=== PATIENT | female | born 1965 | race Caucasian/White ===

== ENCOUNTER 2018-03-17 18:49 | Emergency (ER) | payer SELFPAY ==
[~2018-03-17] VITALS: Ht 175.3 cm; Wt 97.7 kg
[2018-03-17 18:57] VITALS: TEMP 36.7; Ht 175.3 cm; Wt 97.7 kg
[2018-03-17 19:08] VITALS: O2SAT 94
[2018-03-17] MEDS ORDERED: METHYLPREDNISOLONE 125 MG VIAL IV STA (19:14)
[2018-03-17] MEDS ORDERED: SODIUM CHLORIDE 0.9% 500ML 500 ML IV STA (19:14)
[2018-03-17] MEDS ORDERED: ALBUT/IPRATROP 3MG/0.5MG NEB 3 ML VIAL INH ONE (19:15)
[2018-03-17 19:40] LABS: BASO % 0.5 %; BASO ABS # 0.05 K/uL (0-0.2); EOS % 14.4 %; HEMOGLOBIN 12.5 g/dL (12.0-16.0); IG# 0.04 K/uL (0.00-0.02); LYMPH % 26.8 %; LYMPH ABS # 2.79 K/uL (1.2-3.4); MEAN CELL VOLUME 91.1 fL (80-100); MEAN CORPUSCULAR HEMOGLOBIN 30.8 pg (25-34); MEAN CORPUSCULAR HGB CONC 33.8 g/dl (32-36); MEAN PLATELET VOLUME 10.1 fL (7.4-10.4); MONO % 6.2 %; MONO ABS # 0.65 K/uL (0.11-0.59); NEUT % 51.7 %; NEUT ABS # 5.38 K/uL (1.4-6.5); PLATELET COUNT 279 K/uL (130-400); RED CELL DISTRIBUTION WIDTH CV 13.5 % (11.5-14.5); RED CELL DISTRIBUTION WIDTH SD 44.7 fL (36.4-46.3); WHITE BLOOD COUNT 10.41 K/uL (4.8-10.8)
[2018-03-17] MEDS ORDERED: OMEG-21 (19:44)
[2018-03-17] MEDS ORDERED: QUET1TAB32 PO (19:44)
[2018-03-17] MEDS ORDERED: NAPR1TAB9 PO (19:44)
[2018-03-17] MEDS ORDERED: MULT-506 PO (19:44)
[2018-03-17] MEDS ORDERED: SERT100T PO (19:44)
[2018-03-17 19:56] VITALS: PULSE 84; O2SAT 94
[2018-03-17 19:56] LABS: CREATININE 0.8 mg/dl (0.60-1.20); POTASSIUM 3.5 mmol/L (3.5-5.1)
[2018-03-17 20:18] LABS: INFLUENZA B ANTIGEN Neg for Influ B (NEG)
[2018-03-17] MEDS ORDERED: LEVOFLOXACIN 250 MG TAB PO ONE (22:00)
[2018-03-17] MEDS ORDERED: ALBUTEROL HFA 8 GM INHALER INH ONE (22:00)
[2018-03-17 22:20] VITALS: BP 139/91; PULSE 90
--- NOTE | 2018-03-17 22:21 | DIAGNOSTIC IMAGING REPORT ---
CHEST 2 VIEWS ROUTINE CLINICAL HISTORY: Shortness of breath, productive cough and fever. COMPARISON STUDY: Chest radiograph November 15, 2013. FINDINGS: There is no pneumothorax. Linear bibasilar opacities favor atelectasis. There is slight interstitial thickening. There are possible trace bilateral pleural effusions. Cardiac size is normal. Mediastinal contours are normal. IMPRESSION: 1. Slight interstitial thickening which may reflect an infectious process. Mild pulmonary edema could appear similar although is considered less likely. Radiographic follow up is recommended. 2. Suspected trace bilateral pleural effusions. Electronically signed by: Chun Plata M.D. 03/17/2018 10:19 PM Dictated Date/Time: 03/17/2018 10:17 PM
[2018-03-17] MEDS ORDERED: PRED50TA PO (22:22)
[2018-03-17] MEDS ORDERED: LEVO-366 PO (22:22)
[2018-03-17 22:25] VITALS: O2SAT 93
--- NOTE | 2018-03-17 22:26 | EMERGENCY ROOM VISIT NOTE ---
History First contact with patient: 19:06 Chief Complaint: SHORTNESS OF BREATH Stated Complaint: SHORTNESS OF BREATH, COUGHING, WHEEZING Nursing Triage Summary: Pt states sob x 4 days, a/ox4, c/o rib pain. skin w/d/i, color pink, productive cough yellow sputum, lungs decresed with faint wheezes. History of Present Illness The patient is a 53 year old female who presents to the Emergency Room with complaints of a productive cough, fever and shortness of breath for the last 4 days. Patient denies any history of pulmonary disease. She has been trying Mucinex with minimal relief. The patient complains of bilateral chest pain when coughing. She denies any sick contacts. No nausea or vomiting. Review of Systems 10 system review performed and negative unless noted in HPI or below Past Medical/Surgical History Medical Problems: (1) DEPRESSIVE DISORDER NEC (2) DISORDER OF THYROID NOS (3) DRUG ABUSE NEC-UNSPEC (4) HEMANGIOMA INTRACRANIAL (5) MIGRAINE UNSPECIFIED W/O INTRACTABLE MIGRAINE Family History Diabetes mellitus FH: cancer FH: heart disease Hypertension Kidney disease Kidney stones Social History Smoking Status: Never Smoker Alcohol Use: none Marital Status: Housing Status: lives with family Occupation Status: unemployed Current/Historical Medications Scheduled Levofloxacin (Levaquin), 500 MG PO DAILY Multivitamin (Multivitamin), 1 TAB PO DAILY Naproxen (Aleve), 220 MG PO QAM [place]-3 Fatty Acids (Fish Oil), 1 CAP DAILY Prednisone (Prednisone), 50 MG PO DAILY Quetiapine Fumarate (Seroquel), 100 MG PO HS Sertraline Hcl (Zoloft), 150 MG PO DAILY Physical Exam Vital Signs Date Time Temp Pulse Resp B/P (MAP) Pulse Ox O2 Delivery O2 Flow Rate FiO2 03/17/18 22:25 93 Nasal Cannula 2.0 03/17/18 22:20 90 20 139/91 89 Room Air 03/17/18 21:01 82 18 94/67 93 Nasal Cannula 2.0 03/17/18 20:49 84 16 94 03/17/18 20:31 98/68 03/17/18 20:01 105/63 03/17/18 19:56 84 16 94 Nasal Cannula 2.0 03/17/18 19:49 80 95 03/17/18 19:36 99/67 03/17/18 19:35 93 Nasal Cannula 3.0 03/17/18 19:35 89 20 99/67 94 Nasal Cannula 3.0 03/17/18 19:24 88 03/17/18 19:08 94 Nasal Cannula 3.0 03/17/18 19:08 94 Nasal Cannula 3.0 03/17/18 18:57 36.7 100 26 121/72 87 Room Air Physical Exam GENERAL: 53-year-old female, appears older than stated age, mildly acutely ill in appearance, SKIN: The skin was without rashes, erythema, edema, or bruising. HEAD: Normocephalic atraumatic. MOUTH: Mucous membranes fairly dry NECK: Supple without nuchal rigidity. No lymphadenopathy. Cervical spine is nontender. No JVD. HEART: Regular rate and rhythm without murmurs gallops or rubs. LUNGS: Diffuse wheeze with diminished breath sounds at the bases. Positive tachypnea. Hypoxia noted. ABDOMEN: Positive bowel sounds x 4.Soft, nontender, without organomegaly. No guarding or rebound tenderness. MUSCULOSKELETAL: No muscle atrophy, erythema, or edema noted. Strength 5/5 throughout. NEURO: Patient was alert and oriented to person place and time. Normal sensation to touch. No focal neurological deficits. Medical Decision & Procedures ER Provider Diagnostic Interpretation: CXR MPRESSION: 1. Slight interstitial thickening which may reflect an infectious process. Mild pulmonary edema could appear similar although is considered less likely. Radiographic follow up is recommended. 2. Suspected trace bilateral pleural effusions. Electronically signed by: Chun Plata M.D. 03/17/2018 10:19 PM Dictated Date/Time: 03/17/2018 10:17 PM Laboratory Results 03/17/18 19:28 Red Blood Count 4.06, Mean Corpuscular Volume 91.1, Mean Corpuscular Hemoglobin 30.8, Mean Corpuscular Hemoglobin Concent 33.8, Mean Platelet Volume 10.1, Neutrophils (%) (Auto) 51.7, Lymphocytes (%) (Auto) 26.8, Monocytes (%) (Auto) 6.2, Eosinophils (%) (Auto) 14.4, Basophils (%) (Auto) 0.5, Neutrophils # (Auto ) 5.38, Lymphocytes # (Auto) 2.79, Monocytes # (Auto) 0.65, Eosinophils # (Auto ) 1.50, Basophils # (Auto) 0.05 03/17/18 19:28 Test 03/17/18 19:20 03/17/18 19:28 Influenza Type A Antigen Neg for Influ A (NEG) Influenza Type B Antigen Neg for Influ B (NEG) White Blood Count 10.41 K/uL (4.8-10.8) Red Blood Count 4.06 M/uL (4.2-5.4) Hemoglobin 12.5 g/dL (12.0-16.0) Hematocrit 37.0 % (37-47) Mean Corpuscular Volume 91.1 fL (80-100) Mean Corpuscular Hemoglobin 30.8 pg (25-34) Mean Corpuscular Hemoglobin Concent 33.8 g/dl (32-36) Platelet Count 279 K/uL (130-400) Mean Platelet Volume 10.1 fL (7.4-10.4) Neutrophils (%) (Auto) 51.7 % Lymphocytes (%) (Auto) 26.8 % Monocytes (%) (Auto) 6.2 % Eosinophils (%) (Auto) 14.4 % Basophils (%) (Auto) 0.5 % Neutrophils # (Auto) 5.38 K/uL (1.4-6.5) Lymphocytes # (Auto) 2.79 K/uL (1.2-3.4) Monocytes # (Auto) 0.65 K/uL (0.11-0.59) Eosinophils # (Auto) 1.50 K/uL (0-0.5) Basophils # (Auto) 0.05 K/uL (0-0.2) RDW Standard Deviation 44.7 fL (36.4-46.3) RDW Coefficient of Variation 13.5 % (11.5-14.5) Immature Granulocyte % (Auto) 0.4 % Immature Granulocyte # (Auto) 0.04 K/uL (0.00-0.02) Anion Gap 5.0 mmol/L (3-11) Est Creatinine Clear Calc Drug Dose 98.9 ml/min Estimated GFR () 96.2 Estimated GFR (Non- 83.0 BUN/Creatinine Ratio 11.2 (10-20) Calcium Level 9.0 mg/dl (8.5-10.1) Medications Administered Medications (Trade) Dose Ordered Sig/Shannan Route Start Time Stop Time Status Last Admin Dose Admin Methylprednisolone Sodium Succinate (Solu-Medrol IV) 125 mg NOW STAT IV 03/17/18 19:14 03/17/18 19:17 DC 03/17/18 19:28 125 MG Albuterol/ Ipratropium (Duoneb) 12 ml ONE ONCE INH 03/17/18 19:15 03/17/18 19:17 DC 03/17/18 19:33 12 ML Sodium Chloride 500 ml @ 999 mls/hr Q31M STAT IV 03/17/18 19:14 03/17/18 19:44 DC 03/17/18 19:29 999 MLS/HR Albuterol (Ventolin Hfa Inhaler) 2 puffs NOW ONCE INH 03/17/18 22:00 03/17/18 22:01 DC 03/17/18 22:28 2 PUFFS Levofloxacin (Levaquin Tab) 750 mg NOW ONCE PO 03/17/18 22:00 03/17/18 22:01 DC 03/17/18 22:27 750 MG ED Course Patient was seen and examined Vital signs including blood pressure were reviewed medications list was verified with patient Labs were obtained, and a saline lock was established The patient was medicated with Solu-Medrol 125 mg. She was given an hour-long DuoNeb. Imaging was performed and reviewed An ambulatory trial was performed The patient was given 1 dose of Levaquin 750 mg p.o. I discussed disposition with the patient. She declined admission. The patient was given albuterol inhaler. I reviewed discharge instructions the patient. They voiced understanding and had no further questions. Medical Decision Differential diagnosis: Acute respiratory failure, COPD exacerbation, acute bronchitis, pneumonia This patient is a 53-year-old female that presents to the emergency department complaining of cough, shortness of breath and fever. On exam, she had diffuse wheezing and diminished breath sounds. She was tachypneic and hypoxic. The patient was treated and hour-long DuoNeb, Solu-Medrol and Levaquin. She felt slightly better. I had a long discussion with the patient regarding disposition options. The patient reports that she does not have insurance. Although I highly advise the patient be admitted to the hospital for further workup and treatment, she declined due to financial reasons. She did agree to return to the emergency department if she gets any worse. Patient was sent home with an albuterol inhaler, course of steroids and Levaquin. I highly encouraged her to follow-up with her primary care doctor for a recheck and return with worsening symptoms This chart was completed in part utilizing [employer] Speech Voice Recognition software. Attempts were made to minimize the grammatical errors, random word insertions, pronoun errors and incomplete sentences. Any formal questions or concerns about the content, text or information contained within the body of this dictation should be directly addressed to the provider for clarification. Impression Primary Impression: Pneumonia Departure Information Dispostion Home / Self-Care Condition FAIR Prescriptions Levofloxacin (Levaquin) 500 Mg Tab 500 MG PO DAILY, #5 TAB Prov: Radha Costello PA-C 03/17/18 Prednisone (Prednisone) 50 Mg Tab 50 MG PO DAILY for 4 Days, #4 TAB Prov: Radha Costello PA-C 03/17/18 Referrals Carlito Yepez M.D. (PCP) Patient Instructions My [facility] Additional Instructions You have been evaluated in the emergency department for cough, fever and shortness of breath. This is likely due to pneumonia. We recommended that you come into the hospital overnight for treatment. Please take the entire course of antibiotics. The next dose will be tomorrow afternoon. Please take the entire course of prednisone. The next dose will be tomorrow morning Please use the albuterol inhaler 2 puffs every 4 hours as needed for difficulty breathing Please follow-up with your primary care physician within the next 24-48 hours for a recheck Do not hesitate to return to the emergency department with any new, worsening or concerning symptoms It was a pleasure participating in your care today
== END 2018-03-17 23:14 | disposition home or self-care (01) ==
LOC: C.EDB 18:51 → C.EDA 23:14
DX: J18.9 Pneumonia, unspecified organism (principal); F32.9 Major depressive disorder, single episode, unspecified; Z79.899 Other long term (current) drug therapy